=== PATIENT | male | born 1960 | race Hispanic/Latino ===

== ENCOUNTER 2017-09-01 14:28 | Emergency (ER) | payer BC, SELFPAY ==
[2017-09-01] MEDS ORDERED: traMADol HCl 50 MG TAB ONE (14:45)
[2017-09-01] MEDS ORDERED: Ibuprofen 800 MG TAB ONE (14:46)
[2017-09-01] MEDS ORDERED: Ciprofloxacin 500 MG TAB ONE (14:46)
== END 2017-09-01 14:48 | disposition home or self-care (01) ==
LOC: BURERS 14:28
DX: S91.331A Puncture wound without foreign body, right foot, initial encounter (principal); F41.9 Anxiety disorder, unspecified; F32.9 Major depressive disorder, single episode, unspecified; X58.XXXA Exposure to other specified factors, initial encounter
CPT/HCPCS: 99283